=== PATIENT | male | born 1930 | race Caucasian/White ===

== ENCOUNTER 2017-04-05 16:10 | Inpatient (IN) | payer MEDICARE, OTHER ==
[2017-04-05] VITALS (143 sets, daily range): BP systolic 125; BP diastolic 85; PULSE 86; TEMP 97.3; O2SAT 37–100
[~2017-04-05] VITALS: Ht 172.7 cm; Wt 69.2 kg
[~2017-04-05 16:10] MED LIST: ARTIFICIAL SALIVA; ASPIRIN 81M81 MG/TA2 PO; BONINE25 MG PO; CIPRO 500MG TA500 MG PO; COLACE 100100 MG/CAP PO; GLUCOPHAGE850 MG/TAB PO; HYTRIN10 M1 PO; MIRALAX PA17 GM/Dose PO; NASALIDE0.025 MG/A NS; NASAREL0.025 MG/1 NAS; PRAVACHOL80 MG PO; PRILOSEC 20MG20 MG PO; PROAIR HFA0.09 MG/AC IH; PROSCAR 5MG5 MG PO; PSYLLIUM HUSK1 POW; REFRESH TEARS; RT ADVAIR HFA 412 GM IH; SENNA8.6 MG PO; TENORMIN 5050 MG/TAB PO; TOFRANIL 25MG T25 MG PO; UNABLE; VERELAN180 MG PO
[2017-04-05 17:10] LABS: MEAN CELL VOLUME 96 fl (80.0-100.0); MEAN CORPUSCULAR HGB CONC 32 g/dl (33.0-37.0); MEAN PLATELET VOLUME 11.7 fl (7.4-10.4); PLATELET COUNT 97 K/mm3 (130-400); RED BLOOD COUNT 2.62 M/mm3 (4.20-5.60); REDCELL DISTRIBUTION WIDTH-CV 16.2 % (11.5-14.5)
[2017-04-05 17:18] LABS: HEMATOCRIT 25.2 % (42.0-52.0); HEMOGLOBIN 8.1 g/dl (13.5-18.0); MEAN CORPUSCULAR HEMOGLOBIN 31 pg (27.0-31.0); WHITE BLOOD COUNT 65.1 K/mm3 (4.8-10.8)
[2017-04-05 17:19] LABS: ADD PATHOLOGY DIFF REVIEW NO
[2017-04-05 17:29] LABS: ADJUSTED CALCIUM 8.8 mg/dL (8.4-10.2); ALBUMIN 3.1 gm/dL (3.5-5.0); BILIRUBIN,TOTAL 1.1 mg/dL (0.0-1.0); CALCIUM 8.1 mg/dL (8.4-10.2); CREATININE, serum 0.97 mg/dL (0.66-1.25); MAGNESIUM 1.9 mg/dL (1.6-2.3); POTASSIUM 3.8 mmol/L (3.4-5.0)
[2017-04-05 17:32] LABS: INR 1.4 (0.8-3.0)
[2017-04-05] MEDS ORDERED: EVOXAC30 MG PO (17:36)
[2017-04-05] MEDS ORDERED: ASPIRIN E.C. 8181 MG PO (17:37)
[2017-04-05] MEDS ORDERED: FLOMAX 0.40.4 MG/CAP PO (17:40)
[2017-04-05] MEDS ORDERED: DITROPAN XL10 MG PO (17:41)
[2017-04-05] MEDS ORDERED: NAMENDA XR 21MG PO (17:42)
[2017-04-05 17:43] LABS: TROPONIN-I 0.169 ng/mL (0.000-0.034)
[2017-04-05 18:36] LABS: NEUTROPHILS 1 % (42.0-75.2); TOTAL CELLS COUNTED 100
[2017-04-05 18:48] LABS: PLATELET ESTIMATE DECREASED (NORMAL)
[2017-04-05 21:10] LABS: ARTERIAL BLD GAS O2 SATURATION 89.4 % (92-100); ARTERIAL BLD GAS TCO2 CT 23.3; ARTERIAL BLOOD GAS BASE EXCESS -0.9 (-2-2); ARTERIAL BLOOD GAS HCO3 22.3 meq/L (22-26); ARTERIAL BLOOD GAS PHT 7.47 C (7.35-7.45); ARTERIAL BLOOD GAS PO2 60.3 mmHg (80-100); ARTERIAL BLOOD GAS PO2T 60.3 (80-100); ARTERIAL BLOOD GAS pH 7.47 (7.35-7.45); OXYHEMOGLOBIN 89.1 %
[2017-04-05 21:11] LABS: ALLEN TEST YES; ALLENS TEST RESULT PASS; ATS? YES
[2017-04-05 23:30] LABS: SQUAMOUS EPITHELIAL 0-2 /hpf; URINE BACTERIA None Seen /hpf; URINE WBC 0-2 /hpf
[2017-04-05 23:46] LABS: PH 5 (5-8); URINE APPEARANCE Hazy; URINE BILIRUBIN Negative (NEGATIVE); URINE BLOOD 2+ (NEGATIVE); URINE COLOR Yellow; URINE GLUCOSE Negative (NEGATIVE); URINE KETONE Negative (NEGATIVE); URINE UROBILINOGEN Negative (NEGATIVE)
[2017-04-06] VITALS (1240 sets, daily range): BP systolic 117–155; BP diastolic 67–87; PULSE 76–95; TEMP 92–99.9; O2SAT 30–100
[2017-04-06 00:03] LABS: ARTERIAL BLD GAS O2 SATURATION 92.8 % (92-100); ARTERIAL BLD GAS TCO2 CT 23.1; ARTERIAL BLOOD GAS BASE EXCESS -0.9 (-2-2); ARTERIAL BLOOD GAS HCO3 22.2 meq/L (22-26); ARTERIAL BLOOD GAS PHT 7.48 C (7.35-7.45); ARTERIAL BLOOD GAS PO2 68.9 mmHg (80-100); ARTERIAL BLOOD GAS PO2T 68.9 (80-100); ARTERIAL BLOOD GAS pH 7.48 (7.35-7.45); OXYHEMOGLOBIN 92.2 %
[2017-04-06 00:04] LABS: ALLEN TEST YES; ALLENS TEST RESULT PASS; ATS? YES
[2017-04-06] MEDS ORDERED: NORVASC 10MG10 MG PO ×2 (04:14→04:18)
[2017-04-06 05:16] LABS: ARTERIAL BLD GAS O2 SATURATION 94.3 % (92-100); ARTERIAL BLD GAS TCO2 CT 24.7; ARTERIAL BLOOD GAS BASE EXCESS 0.8 (-2-2); ARTERIAL BLOOD GAS HCO3 23.8 meq/L (22-26); ARTERIAL BLOOD GAS PHT 7.49 C (7.35-7.45); ARTERIAL BLOOD GAS PO2 72.4 mmHg (80-100); ARTERIAL BLOOD GAS PO2T 72.4 (80-100); ARTERIAL BLOOD GAS pH 7.49 (7.35-7.45); OXYHEMOGLOBIN 93.5 %
[2017-04-06 05:49] LABS: ALLEN TEST YES; ATS? YES
[2017-04-06 05:50] LABS: ALLENS TEST RESULT PASS
[2017-04-06 06:15] LABS: MEAN CELL VOLUME 98 fl (80.0-100.0); MEAN CORPUSCULAR HGB CONC 31 g/dl (33.0-37.0); MEAN PLATELET VOLUME 11.8 fl (7.4-10.4); PLATELET COUNT 90 K/mm3 (130-400); RED BLOOD COUNT 2.75 M/mm3 (4.20-5.60); REDCELL DISTRIBUTION WIDTH-CV 16.5 % (11.5-14.5)
[2017-04-06 06:19] LABS: ADD PATHOLOGY DIFF REVIEW NO; HEMATOCRIT 26.8 % (42.0-52.0); HEMOGLOBIN 8.4 g/dl (13.5-18.0); MEAN CORPUSCULAR HEMOGLOBIN 31 pg (27.0-31.0); WHITE BLOOD COUNT 61.7 K/mm3 (4.8-10.8)
[2017-04-06 06:24] LABS: ADJUSTED CALCIUM 8.7 mg/dL (8.4-10.2); ALBUMIN 3.2 gm/dL (3.5-5.0); BILIRUBIN,TOTAL 1.2 mg/dL (0.0-1.0); CALCIUM 8.1 mg/dL (8.4-10.2); CREATININE, serum 0.96 mg/dL (0.66-1.25); TOTAL PROTEIN 6.2 gm/dL (6.4-8.2)
[2017-04-06 06:36] LABS: BAND 1 % (0-10); NEUTROPHILS 1 % (42.0-75.2); TOTAL CELLS COUNTED 100
[2017-04-06 06:37] LABS: POLYCHROMASIA 2+; SPHEROCYTE 2+
[2017-04-06 06:38] LABS: PLATELET ESTIMATE DECREASED (NORMAL)
[2017-04-07] VITALS (1185 sets, daily range): BP systolic 83–148; BP diastolic 47–94; PULSE 55–88; TEMP 96.9–99.1; O2SAT 40–100
[2017-04-07 08:02] LABS: PATHOLOGY DIFF REVIEW OK +
[2017-04-07 12:13] LABS: BASO # 0.1 (0.0-0.2); BASO % 0.2 % (0.0-2.0); EOS # 0.2 (0.0-0.7); EOS % 0.5 % (0-4.0); GRAN # 3.8 (1.4-6.5); GRAN % 7.9 % (42.2-75.2); LYMPH # 44.1 (1.2-3.4); LYMPH % 90.9 % (20.0-51.0); MEAN CELL VOLUME 97 fl (80.0-100.0); MEAN CORPUSCULAR HGB CONC 32 g/dl (33.0-37.0); MEAN PLATELET VOLUME 11.5 fl (7.4-10.4); MONO # 0.2 (0.1-0.6); MONO % 0.4 % (1.7-9.3); PLATELET COUNT 93 K/mm3 (130-400); RED BLOOD COUNT 2.61 M/mm3 (4.20-5.60); REDCELL DISTRIBUTION WIDTH-CV 16.3 % (11.5-14.5)
[2017-04-07 12:17] LABS: HEMATOCRIT 25.4 % (42.0-52.0); MEAN CORPUSCULAR HEMOGLOBIN 31 pg (27.0-31.0); WHITE BLOOD COUNT 48.5 K/mm3 (4.8-10.8)
[2017-04-07 12:36] LABS: ADJUSTED CALCIUM 9.1 mg/dL (8.4-10.2); ALBUMIN 2.9 gm/dL (3.5-5.0); BILIRUBIN,TOTAL 0.8 mg/dL (0.0-1.0); CALCIUM 8.2 mg/dL (8.4-10.2); CREATININE, serum 1.12 mg/dL (0.66-1.25); POTASSIUM 3.1 mmol/L (3.4-5.0); TOTAL PROTEIN 5.9 gm/dL (6.4-8.2)
[2017-04-07 15:24] LABS: ARTERIAL BLD GAS O2 SATURATION 94.7 % (92-100); ARTERIAL BLD GAS TCO2 CT 22.8; ARTERIAL BLOOD GAS BASE EXCESS -1.4 (-2-2); ARTERIAL BLOOD GAS HCO3 21.9 meq/L (22-26); ARTERIAL BLOOD GAS PO2 76.9 mmHg (80-100); ARTERIAL BLOOD GAS pH 7.48 (7.35-7.45); OXYHEMOGLOBIN 93.7 %
[2017-04-07 15:25] LABS: ALLEN TEST YES; ALLENS TEST RESULT PASS; ATS? YES
[2017-04-07 15:26] LABS: VENOUS BLOOD GAS BE 0.2 (-4-4); VENOUS BLOOD GAS SAO2 36.2 % (60-80); VENOUS BLOOD GAS SITE CENTRAL LINE
[2017-04-07 21:17] LABS: VENOUS BLOOD GAS BE -6.6 (-4-4)
[2017-04-07 21:18] LABS: VENOUS BLOOD GAS SITE CENTRAL LINE
[2017-04-07 21:22] LABS: BASO # 0.1 (0.0-0.2); BASO % 0.1 % (0.0-2.0); EOS # 0.2 (0.0-0.7); EOS % 0.3 % (0-4.0); GRAN # 4.3 (1.4-6.5); GRAN % 5.8 % (42.2-75.2); LYMPH # 67.9 (1.2-3.4); LYMPH % 93.1 % (20.0-51.0); MEAN CELL VOLUME 97 fl (80.0-100.0); MEAN CORPUSCULAR HGB CONC 31 g/dl (33.0-37.0); MEAN PLATELET VOLUME 12.4 fl (7.4-10.4); MONO # 0.4 (0.1-0.6); MONO % 0.6 % (1.7-9.3); PLATELET COUNT 101 K/mm3 (130-400); RED BLOOD COUNT 2.91 M/mm3 (4.20-5.60); REDCELL DISTRIBUTION WIDTH-CV 16.6 % (11.5-14.5)
[2017-04-07 21:59] LABS: HEMATOCRIT 28.3 % (42.0-52.0); HEMOGLOBIN 8.9 g/dl (13.5-18.0); MEAN CORPUSCULAR HEMOGLOBIN 31 pg (27.0-31.0)
[2017-04-08] VITALS (263 sets, daily range): BP systolic 118–148; BP diastolic 63–113; PULSE 55–92; TEMP 37; O2SAT 62–100
[2017-04-08] LABS: IMMUNOGLOBULIN A 46 mg/dL (101-645); IMMUNOGLOBULIN G 512 mg/dL (540-1822); IMMUNOGLOBULIN M, QUANTITATIVE 13 mg/dL (22-240)
[2017-04-08 05:04] LABS: ARTERIAL BLD GAS O2 SATURATION 91.1 % (92-100); ARTERIAL BLD GAS TCO2 CT 19.9; ARTERIAL BLOOD GAS HCO3 18.9 meq/L (22-26); ARTERIAL BLOOD GAS PHT 7.41 C (7.35-7.45); ARTERIAL BLOOD GAS PO2 66.6 mmHg (80-100); ARTERIAL BLOOD GAS PO2T 66.6 (80-100); ARTERIAL BLOOD GAS pH 7.41 (7.35-7.45); OXYHEMOGLOBIN 90.4 %
[2017-04-08 05:05] LABS: ALLEN TEST YES; ALLENS TEST RESULT PASS; ATS? YES
[2017-04-08 05:34] LABS: BASO # 0.2 (0.0-0.2); BASO % 0.3 % (0.0-2.0); GRAN # 4.6 (1.4-6.5); GRAN % 7.3 % (42.2-75.2); LYMPH # 58.6 (1.2-3.4); LYMPH % 91.8 % (20.0-51.0); MEAN CELL VOLUME 97 fl (80.0-100.0); MEAN CORPUSCULAR HGB CONC 31 g/dl (33.0-37.0); MEAN PLATELET VOLUME 12.7 fl (7.4-10.4); MONO # 0.4 (0.1-0.6); MONO % 0.5 % (1.7-9.3); PLATELET COUNT 88 K/mm3 (130-400); RED BLOOD COUNT 2.92 M/mm3 (4.20-5.60); REDCELL DISTRIBUTION WIDTH-CV 17.2 % (11.5-14.5)
[2017-04-08 05:35] LABS: HEMATOCRIT 28.3 % (42.0-52.0); HEMOGLOBIN 8.9 g/dl (13.5-18.0); MEAN CORPUSCULAR HEMOGLOBIN 30 pg (27.0-31.0)
[2017-04-08 05:36] LABS: WHITE BLOOD COUNT 63.8 K/mm3 (4.8-10.8)
[2017-04-08 05:49] LABS: PROTHROMBIN TIME 22.8 SECONDS (9.7-12.8)
[2017-04-08 06:25] LABS: ADJUSTED CALCIUM 8.8 mg/dL (8.4-10.2); ALBUMIN 3.1 gm/dL (3.5-5.0); BILIRUBIN,TOTAL 1.1 mg/dL (0.0-1.0); CALCIUM 8.1 mg/dL (8.4-10.2); CREATININE, serum 1.32 mg/dL (0.66-1.25); TOTAL PROTEIN 5.9 gm/dL (6.4-8.2)
[2017-04-08 14:24] LABS: ARTERIAL BLD GAS O2 SATURATION 89.9 % (92-100); ARTERIAL BLD GAS TCO2 CT 20.6; ARTERIAL BLOOD GAS BASE EXCESS -4.2 (-2-2); ARTERIAL BLOOD GAS HCO3 19.6 meq/L (22-26); ARTERIAL BLOOD GAS PO2 62.5 mmHg (80-100); ARTERIAL BLOOD GAS pH 7.42 (7.35-7.45); OXYHEMOGLOBIN 89.2 %
[2017-04-08 14:25] LABS: ALLEN TEST YES; ATS? YES
[2017-04-08 14:26] LABS: ALLENS TEST RESULT PASS
[2017-04-09] VITALS (570 sets, daily range): BP systolic 122–179; BP diastolic 59–118; PULSE 57–88; TEMP 97–98.5; O2SAT 54–100
[2017-04-09 05:08] LABS: GRAN # 4.9 (1.4-6.5); GRAN % 7.5 % (42.2-75.2); LYMPH # 59.7 (1.2-3.4); LYMPH % 91.8 % (20.0-51.0); MEAN CELL VOLUME 96 fl (80.0-100.0); MEAN CORPUSCULAR HGB CONC 32 g/dl (33.0-37.0); MEAN PLATELET VOLUME 12.4 fl (7.4-10.4); MONO # 0.2 (0.1-0.6); MONO % 0.4 % (1.7-9.3); PLATELET COUNT 101 K/mm3 (130-400); RED BLOOD COUNT 3.17 M/mm3 (4.20-5.60); REDCELL DISTRIBUTION WIDTH-CV 16.9 % (11.5-14.5)
[2017-04-09 05:09] LABS: HEMATOCRIT 30.3 % (42.0-52.0); HEMOGLOBIN 9.7 g/dl (13.5-18.0); MEAN CORPUSCULAR HEMOGLOBIN 31 pg (27.0-31.0)
[2017-04-09 05:10] LABS: WHITE BLOOD COUNT 65.1 K/mm3 (4.8-10.8)
[2017-04-09 05:16] LABS: ADJUSTED CALCIUM 9.1 mg/dL (8.4-10.2); ALBUMIN 3.2 gm/dL (3.5-5.0); BILIRUBIN,TOTAL 0.9 mg/dL (0.0-1.0); CALCIUM 8.5 mg/dL (8.4-10.2); CREATININE, serum 1.16 mg/dL (0.66-1.25); POTASSIUM 3.5 mmol/L (3.4-5.0); TOTAL PROTEIN 6.1 gm/dL (6.4-8.2)
[2017-04-09 05:17] LABS: PROTHROMBIN TIME 22.8 SECONDS (9.7-12.8)
[2017-04-10] VITALS (13 sets, daily range): BP systolic 115–175; BP diastolic 56–90; PULSE 51–70; TEMP 97.4–98.9
[2017-04-10 07:22] LABS: MEAN CELL VOLUME 99 fl (80.0-100.0); MEAN CORPUSCULAR HGB CONC 31 g/dl (33.0-37.0); MEAN PLATELET VOLUME 12.1 fl (7.4-10.4); PLATELET COUNT 104 K/mm3 (130-400); RED BLOOD COUNT 3.09 M/mm3 (4.20-5.60)
[2017-04-10 07:23] LABS: INR 1.9 (0.8-3.0); PROTHROMBIN TIME 21.9 SECONDS (9.7-12.8)
[2017-04-10 07:27] LABS: ADD PATHOLOGY DIFF REVIEW NO; HEMATOCRIT 30.6 % (42.0-52.0); HEMOGLOBIN 9.5 g/dl (13.5-18.0); MEAN CORPUSCULAR HEMOGLOBIN 31 pg (27.0-31.0); WHITE BLOOD COUNT 54.8 K/mm3 (4.8-10.8)
[2017-04-10 08:04] LABS: ADJUSTED CALCIUM 9.2 mg/dL (8.4-10.2); ALBUMIN 3.2 gm/dL (3.5-5.0); BILIRUBIN,TOTAL 0.7 mg/dL (0.0-1.0); CALCIUM 8.6 mg/dL (8.4-10.2); CREATININE, serum 1.18 mg/dL (0.66-1.25); POTASSIUM 3.5 mmol/L (3.4-5.0); TOTAL PROTEIN 6.1 gm/dL (6.4-8.2)
[2017-04-10 09:03] LABS: NEUTROPHILS 4 % (42.0-75.2); POLYCHROMASIA 1+
[2017-04-10 09:04] LABS: PLATELET ESTIMATE DECREASED (NORMAL)
[2017-04-10 09:05] LABS: BAND 5 % (0-10); TOTAL CELLS COUNTED 100
[2017-04-11 00:07] VITALS: BP 155/75; PULSE 62; TEMP 97.6
[2017-04-11 04:30] VITALS: BP 158/76; PULSE 69; TEMP 97.6
[2017-04-11 08:08] LABS: MEAN CELL VOLUME 99 fl (80.0-100.0); MEAN CORPUSCULAR HGB CONC 31 g/dl (33.0-37.0); MEAN PLATELET VOLUME 12.9 fl (7.4-10.4); PLATELET COUNT 84 K/mm3 (130-400); REDCELL DISTRIBUTION WIDTH-CV 16.8 % (11.5-14.5)
[2017-04-11 08:11] VITALS: BP 145/84; PULSE 99
[2017-04-11 08:11] LABS: ADD PATHOLOGY DIFF REVIEW NO; HEMATOCRIT 28.8 % (42.0-52.0); HEMOGLOBIN 8.9 g/dl (13.5-18.0); MEAN CORPUSCULAR HEMOGLOBIN 31 pg (27.0-31.0); WHITE BLOOD COUNT 49.9 K/mm3 (4.8-10.8)
[2017-04-11 08:14] LABS: CALCIUM 8.6 mg/dL (8.4-10.2); CREATININE, serum 1.18 mg/dL (0.66-1.25); POTASSIUM 3.8 mmol/L (3.4-5.0)
[2017-04-11 08:39] LABS: BAND 3 % (0-10); HYPOCHROMIA 3+; NEUTROPHILS 1 % (42.0-75.2); TOTAL CELLS COUNTED 100
[2017-04-11 08:40] LABS: ANISOCYTOSIS 1+; PLATELET ESTIMATE DECREASED (NORMAL); SPHEROCYTE 1+
[2017-04-11 12:27] VITALS: BP 1134/57; BP 134/57; PULSE 79; TEMP 97.9
[2017-04-11 16:03] VITALS: BP 139/55; PULSE 75; TEMP 98.5
[2017-04-11 20:30] VITALS: BP 142/66; PULSE 67; TEMP 97.6
[2017-04-12 01:34] VITALS: BP 157/82; PULSE 60; TEMP 97.6
[2017-04-12 04:33] VITALS: BP 154/70; PULSE 58; TEMP 98.1
[2017-04-12 07:53] VITALS: BP 165/90; PULSE 59; TEMP 98.6
[2017-04-12 08:18] LABS: INR 1.7 (0.8-3.0); MEAN CELL VOLUME 99 fl (80.0-100.0); MEAN CORPUSCULAR HGB CONC 31 g/dl (33.0-37.0); PLATELET COUNT 80 K/mm3 (130-400); PROTHROMBIN TIME 19.1 SECONDS (9.7-12.8); REDCELL DISTRIBUTION WIDTH-CV 17.3 % (11.5-14.5)
[2017-04-12 08:22] LABS: ADD PATHOLOGY DIFF REVIEW NO; HEMATOCRIT 29.8 % (42.0-52.0); HEMOGLOBIN 9.2 g/dl (13.5-18.0); MEAN CORPUSCULAR HEMOGLOBIN 31 pg (27.0-31.0); WHITE BLOOD COUNT 42.2 K/mm3 (4.8-10.8)
[2017-04-12 08:27] LABS: CALCIUM 8.5 mg/dL (8.4-10.2); CREATININE, serum 1.24 mg/dL (0.66-1.25); POTASSIUM 3.6 mmol/L (3.4-5.0)
[2017-04-12 08:40] LABS: NEUTROPHILS 8 % (42.0-75.2); TOTAL CELLS COUNTED 101
[2017-04-12 08:41] LABS: ANISOCYTOSIS 1+; POLYCHROMASIA 1+; TOXIC GRANULATION PRESENT
[2017-04-12 08:42] LABS: HYPOCHROMIA 1+; ROULEAUX 1+
[2017-04-12 08:43] LABS: PROLACTIN 24.2 ng/mL (3.7-17.9)
[2017-04-12 08:44] LABS: MICROCYTOSIS 1+
[2017-04-12 11:45] LABS: PLEURAL FLUID APPEARANCE CLEAR; PLEURAL FLUID COLOR COLORLESS
[2017-04-12 11:50] LABS: GLUCOSE,PLEURAL FLUID 159 mg/dL
[2017-04-12 12:34] VITALS: BP 126/66; PULSE 72; TEMP 98.6
[2017-04-12 13:16] LABS: PLEURAL FLUID RIGHT SIDE
[2017-04-12 17:03] VITALS: BP 137/57; PULSE 48; TEMP 98.5
[2017-04-12 20:19] VITALS: BP 133/53; PULSE 107; TEMP 98.6
[2017-04-13 05:09] VITALS: BP 150/63; PULSE 51; TEMP 98.3
[2017-04-13 08:44] VITALS: BP 154/63; PULSE 55; TEMP 97.8
[2017-04-13 09:20] LABS: MEAN CELL VOLUME 99 fl (80.0-100.0); MEAN CORPUSCULAR HGB CONC 31 g/dl (33.0-37.0); MEAN PLATELET VOLUME 12.7 fl (7.4-10.4); PLATELET COUNT 75 K/mm3 (130-400); RED BLOOD COUNT 2.84 M/mm3 (4.20-5.60); REDCELL DISTRIBUTION WIDTH-CV 17.6 % (11.5-14.5)
[2017-04-13 09:25] LABS: HEMATOCRIT 28.1 % (42.0-52.0); HEMOGLOBIN 8.8 g/dl (13.5-18.0); MEAN CORPUSCULAR HEMOGLOBIN 31 pg (27.0-31.0); WHITE BLOOD COUNT 32.5 K/mm3 (4.8-10.8)
[2017-04-13 09:26] LABS: ADD PATHOLOGY DIFF REVIEW NO
[2017-04-13 09:35] LABS: CALCIUM 8.2 mg/dL (8.4-10.2); CREATININE, serum 1.25 mg/dL (0.66-1.25); PHOSPHOROUS 5.1 mg/dL (2.5-4.5); POTASSIUM 3.5 mmol/L (3.4-5.0)
[2017-04-13 10:32] LABS: ANISOCYTOSIS 1+; BAND 5 % (0-10); NEUTROPHILS 13 % (42.0-75.2); PLATELET ESTIMATE DECREASED (NORMAL); TOTAL CELLS COUNTED 100
[2017-04-13 10:33] LABS: HYPOCHROMIA 1+
[2017-04-13 12:17] VITALS: BP 119/50; PULSE 51; TEMP 98.4
[2017-04-13 13:30] LABS: GLUCOSE,PLEURAL FLUID 173 mg/dL
[2017-04-13 14:33] LABS: PLEURAL FLUID - PMN 0.7 % (0-25)
[2017-04-13 16:36] VITALS: BP 140/59; PULSE 128; TEMP 97.8
[2017-04-13 18:27] LABS: PLEURAL FLUID APPEARANCE CLEAR; PLEURAL FLUID COLOR YELLOW
[2017-04-13 18:30] LABS: PLEURAL FLUID LEFT SIDE
[2017-04-13 19:44] VITALS: BP 140/55; PULSE 58; TEMP 98.1
[2017-04-14 00:22] VITALS: BP 147/64; PULSE 60; TEMP 97.7
[2017-04-14 04:15] VITALS: BP 148/64; PULSE 56; TEMP 97.7
[2017-04-14 06:59] LABS: MEAN CELL VOLUME 100 fl (80.0-100.0); MEAN CORPUSCULAR HGB CONC 31 g/dl (33.0-37.0); MEAN PLATELET VOLUME 12.2 fl (7.4-10.4); PLATELET COUNT 76 K/mm3 (130-400); RED BLOOD COUNT 2.92 M/mm3 (4.20-5.60); REDCELL DISTRIBUTION WIDTH-CV 17.6 % (11.5-14.5)
[2017-04-14 07:08] LABS: HEMATOCRIT 29.2 % (42.0-52.0); HEMOGLOBIN 9.1 g/dl (13.5-18.0); MEAN CORPUSCULAR HEMOGLOBIN 31 pg (27.0-31.0); WHITE BLOOD COUNT 30.7 K/mm3 (4.8-10.8)
[2017-04-14 07:09] LABS: ADD PATHOLOGY DIFF REVIEW NO
[2017-04-14 07:10] LABS: CALCIUM 8.4 mg/dL (8.4-10.2); CREATININE, serum 1.19 mg/dL (0.66-1.25); POTASSIUM 3.4 mmol/L (3.4-5.0)
[2017-04-14 07:36] VITALS: BP 158/77; PULSE 58; TEMP 97.5
[2017-04-14] MEDS ORDERED: IPRATROPIUM BROM3 M1 IH ×2 (08:31)
[2017-04-14] MEDS ORDERED: HEPARIN LOCK FLU5 M1 IV ×2 (08:32)
[2017-04-14] MEDS ORDERED: SEROQUEL 2525 MG/TAB PO ×2 (08:33→08:34)
[2017-04-14] MEDS ORDERED: TYLENOL 325MG325 MG PO (08:33)
[2017-04-14] MEDS ORDERED: PREDNISONE20 MG PO (08:35)
[2017-04-14] MEDS ORDERED: NOVLOG SQ (08:35)
[2017-04-14] MEDS ORDERED: NS INT FLUSH 1010 ML IV ×2 (08:36)
[2017-04-14] MEDS ORDERED: VANCOCIN HCL1 GM IV (09:25)
[2017-04-14] MEDS ORDERED: DIFLUCAN 100MG100 MG PO (09:26)
[2017-04-14] MEDS ORDERED: LASIX 20MG TABL20 MG PO (09:27)
[2017-04-14] MEDS ORDERED: ANTACID500 M1 PO (09:27)
[2017-04-14] MEDS ORDERED: K-TAB20 PO (09:28)
[2017-04-14] MEDS ORDERED: TENORMIN 2525 MG/TAB PO (09:29)
[2017-04-14 10:14] LABS: ANISOCYTOSIS 2+; BAND 4 % (0-10); EOSINOPHIL 1 % (0-4); HYPOCHROMIA 1+; NEUTROPHILS 6 % (42.0-75.2); PLATELET ESTIMATE DECREASED (NORMAL); TOTAL CELLS COUNTED 100
[2017-04-14 12:22] VITALS: BP 129/52; PULSE 80; TEMP 98.6
[2017-04-14 16:02] VITALS: BP 130/57; PULSE 52; TEMP 98.8
[2017-04-14 17:03] VITALS: BP 130/57; PULSE 52; TEMP 98.8
== END 2017-04-14 17:19 | DRG 853 ==
LOC: COL.ER 16:10 → ICU 18:45 → MEDICAL 04-09 11:39
PROVIDERS: Emergency Medicine; Family Medicine; Internal Medicine; Internal Medicine Cardiovascular Disease; Internal Medicine Medical Oncology; Internal Medicine Pulmonary Disease; Nurse Practitioner Family; Physician Assistant
PROC: 0JH602Z Insertion of Monitoring Device into Chest Subcutaneous Tissue and Fascia, Open Approach (ICD-10-PCS; principal; 2017-04-08)
PROC: 0W993ZX Drainage of Right Pleural Cavity, Percutaneous Approach, Diagnostic (ICD-10-PCS; 2017-04-12)
PROC: 0W9B3ZX Drainage of Left Pleural Cavity, Percutaneous Approach, Diagnostic (ICD-10-PCS; 2017-04-13)
DX: A41.02 Sepsis due to Methicillin resistant Staphylococcus aureus (principal); J15.212 Pneumonia due to Methicillin resistant Staphylococcus aureus; J96.01 Acute respiratory failure with hypoxia; I50.33 Acute on chronic diastolic (congestive) heart failure; I21.4 Non-ST elevation (NSTEMI) myocardial infarction; C91.10 Chronic lymphocytic leukemia of B-cell type not having achieved remission; E87.1 Hypo-osmolality and hyponatremia; F23 Brief psychotic disorder; R65.20 Severe sepsis without septic shock; I25.10 Atherosclerotic heart disease of native coronary artery without angina pectoris; I11.0 Hypertensive heart disease with heart failure; E11.9 Type 2 diabetes mellitus without complications; Z87.891 Personal history of nicotine dependence; F03.90 Unspecified dementia, unspecified severity, without behavioral disturbance, psychotic disturbance, mood disturbance, and anxiety; Z95.5 Presence of coronary angioplasty implant and graft; N40.1 Benign prostatic hyperplasia with lower urinary tract symptoms; R33.8 Other retention of urine; I48.2 Chronic atrial fibrillation
CPT/HCPCS: 99223-AI; 99232-AI; 99233-AI; 99239; A4315; C1751; C1764; J1200; J1459; J1610; J1630; J1644; J1650; J1720; J1815; J1940; J1956; J2060; J2543; J2920; J2930; J3370; J7030; J7050; J7512; P9040; Q9967

== ENCOUNTER 2017-04-14 17:30 | Inpatient (IN) | payer MEDICARE, OTHER ==
[~2017-04-14] VITALS: Ht 172.7 cm; Wt 56.6 kg
[~2017-04-14 17:30] MED LIST changes: +ANTACID500 M1 PO; +ASPIRIN E.C. 8181 MG PO; +DIFLUCAN 100MG100 MG PO; +DITROPAN XL10 MG PO; +EVOXAC30 MG PO; +FLOMAX 0.40.4 MG/CAP PO; +HEPARIN LOCK FLU5 M1 IV; +IPRATROPIUM BROM3 M1 IH; +K-TAB20 PO; +LASIX 20MG TABL20 MG PO; +NAMENDA XR 21MG PO; +NORVASC 10MG10 MG PO; +NOVLOG SQ; +NS INT FLUSH 1010 ML IV; +PREDNISONE20 MG PO; +SEROQUEL 2525 MG/TAB PO; +TENORMIN 2525 MG/TAB PO; +TYLENOL 325MG325 MG PO; +VANCOCIN HCL1 GM IV
[2017-04-14 18:17] VITALS: BP 124/53; PULSE 52; TEMP 98.4
[2017-04-15 05:00] VITALS: BP 144/58; PULSE 61; TEMP 98.9
[2017-04-15 06:37] VITALS: BP 110/60; PULSE 69; TEMP 98.5
[2017-04-15 16:48] VITALS: BP 98/39; PULSE 52; TEMP 98.1
[2017-04-16 05:28] LABS: BASO % 0.1 % (0.0-2.0); EOS # 0.1 (0.0-0.7); EOS % 0.5 % (0-4.0); GRAN # 3.2 (1.4-6.5); GRAN % 11.5 % (42.2-75.2); LYMPH % 87.4 % (20.0-51.0); MEAN CELL VOLUME 100 fl (80.0-100.0); MEAN CORPUSCULAR HGB CONC 31 g/dl (33.0-37.0); MEAN PLATELET VOLUME 12.9 fl (7.4-10.4); MONO # 0.1 (0.1-0.6); MONO % 0.4 % (1.7-9.3); PLATELET COUNT 72 K/mm3 (130-400); REDCELL DISTRIBUTION WIDTH-CV 17.3 % (11.5-14.5)
[2017-04-16 05:37] LABS: HEMATOCRIT 28.9 % (42.0-52.0); MEAN CORPUSCULAR HEMOGLOBIN 31 pg (27.0-31.0); WHITE BLOOD COUNT 27.4 K/mm3 (4.8-10.8)
[2017-04-16 05:42] LABS: CALCIUM 8.2 mg/dL (8.4-10.2); CREATININE, serum 0.99 mg/dL (0.66-1.25); POTASSIUM 3.1 mmol/L (3.4-5.0)
[2017-04-16 06:30] VITALS: BP 137/59; PULSE 55; TEMP 98.4
[2017-04-16 17:45] VITALS: BP 113/47; PULSE 63; TEMP 98
[2017-04-17 04:54] VITALS: BP 130/53; PULSE 67; TEMP 98.3
[2017-04-17 16:59] VITALS: BP 91/50; PULSE 70; TEMP 97.3
[2017-04-17 20:00] VITALS: BP 127/58; PULSE 54
[2017-04-18 03:14] VITALS: BP 121/52; PULSE 61; TEMP 98.5
[2017-04-18 04:42] LABS: MEAN CELL VOLUME 98 fl (80.0-100.0); MEAN CORPUSCULAR HGB CONC 32 g/dl (33.0-37.0); MEAN PLATELET VOLUME 12.2 fl (7.4-10.4); PLATELET COUNT 73 K/mm3 (130-400); RED BLOOD COUNT 2.94 M/mm3 (4.20-5.60); REDCELL DISTRIBUTION WIDTH-CV 17.1 % (11.5-14.5)
[2017-04-18 04:45] LABS: HEMATOCRIT 28.8 % (42.0-52.0); HEMOGLOBIN 9.1 g/dl (13.5-18.0); MEAN CORPUSCULAR HEMOGLOBIN 31 pg (27.0-31.0)
[2017-04-18 04:47] LABS: ADD PATHOLOGY DIFF REVIEW NO; WHITE BLOOD COUNT 27.7 K/mm3 (4.8-10.8)
[2017-04-18 04:54] LABS: ANISOCYTOSIS 3+; BAND 3 % (0-10); CALCIUM 9.3 mg/dL (8.4-10.2); CREATININE, serum 1.08 mg/dL (0.66-1.25); HYPOCHROMIA 1+; MAGNESIUM 1.7 mg/dL (1.6-2.3); NEUTROPHILS 14 % (42.0-75.2); PLATELET ESTIMATE DECREASED (NORMAL); POTASSIUM 5.5 mmol/L (3.4-5.0); TOTAL CELLS COUNTED 100
[2017-04-18 19:28] VITALS: BP 111/41; PULSE 52; TEMP 97.4
[2017-04-19 05:40] VITALS: BP 147/67; PULSE 64; TEMP 98.2
[2017-04-19 05:43] LABS: CALCIUM 9.1 mg/dL (8.4-10.2); CREATININE, serum 1.16 mg/dL (0.66-1.25); POTASSIUM 5.1 mmol/L (3.4-5.0)
[2017-04-19 16:28] VITALS: BP 103/47; PULSE 79; TEMP 97.9
[2017-04-20 05:45] LABS: PH 8 (5-8); SQUAMOUS EPITHELIAL 0-2 /hpf; URINE APPEARANCE Clear; URINE BACTERIA Rare /hpf; URINE BILIRUBIN Negative (NEGATIVE); URINE BLOOD 3+ (NEGATIVE); URINE COLOR Straw; URINE GLUCOSE Negative (NEGATIVE); URINE KETONE Negative (NEGATIVE); URINE UROBILINOGEN Negative (NEGATIVE); URINE WBC 0-2 /hpf
[2017-04-20 06:16] VITALS: BP 129/63; PULSE 61; TEMP 97.6
[2017-04-20 18:02] VITALS: BP 111/52; PULSE 57; TEMP 98.1
[2017-04-21 04:43] VITALS: BP 105/48; PULSE 58; TEMP 97.7
[2017-04-21 04:58] VITALS: BP 105/48; PULSE 58; TEMP 97.7
[2017-04-21 19:24] VITALS: BP 124/55; PULSE 65; TEMP 97.2
[2017-04-22 04:53] VITALS: BP 128/53; PULSE 66; TEMP 97.4
[2017-04-22 12:34] LABS: PH 8 (5-8); SQUAMOUS EPITHELIAL None Seen /hpf; URINE APPEARANCE Clear; URINE BACTERIA None Seen /hpf; URINE BILIRUBIN Negative (NEGATIVE); URINE BLOOD 2+ (NEGATIVE); URINE COLOR Yellow; URINE GLUCOSE Negative (NEGATIVE); URINE KETONE Negative (NEGATIVE); URINE UROBILINOGEN Negative (NEGATIVE); URINE WBC 0-2 /hpf
[2017-04-22 17:07] VITALS: BP 119/53; PULSE 54; TEMP 98.4
[2017-04-23 05:28] VITALS: BP 116/62; PULSE 64; TEMP 97.7
[2017-04-23 17:40] VITALS: BP 92/45; PULSE 52; TEMP 97.8
[2017-04-24 01:08] VITALS: BP 112/56; PULSE 65; TEMP 98.1
[2017-04-24 05:43] VITALS: BP 109/51; PULSE 60; TEMP 97.2
[2017-04-24 17:00] VITALS: BP 112/43; PULSE 48; TEMP 98
[2017-04-25 04:39] VITALS: BP 119/64; PULSE 74; TEMP 98
[2017-04-25 06:46] LABS: MEAN CELL VOLUME 98 fl (80.0-100.0); MEAN CORPUSCULAR HGB CONC 32 g/dl (33.0-37.0); PLATELET COUNT 81 K/mm3 (130-400); RED BLOOD COUNT 2.97 M/mm3 (4.20-5.60)
[2017-04-25 06:52] LABS: HEMATOCRIT 29.2 % (42.0-52.0); HEMOGLOBIN 9.3 g/dl (13.5-18.0); MEAN CORPUSCULAR HEMOGLOBIN 31 pg (27.0-31.0); WHITE BLOOD COUNT 29.2 K/mm3 (4.8-10.8)
[2017-04-25 07:01] LABS: CALCIUM 8.6 mg/dL (8.4-10.2); CREATININE, serum 1.22 mg/dL (0.66-1.25); MAGNESIUM 1.9 mg/dL (1.6-2.3); POTASSIUM 3.9 mmol/L (3.4-5.0)
[2017-04-25 08:22] LABS: BAND 4 % (0-10); EOSINOPHIL 4 % (0-4); TOTAL CELLS COUNTED 100
[2017-04-25 08:24] LABS: PLATELET ESTIMATE DECREASED (NORMAL)
[2017-04-25 08:25] LABS: STOMATOCYTE 2+
[2017-04-25 08:26] LABS: HYPOCHROMIA 3+
[2017-04-25 08:27] LABS: ADD PATHOLOGY DIFF REVIEW YES
[2017-04-25 10:38] VITALS: BP 119/64; PULSE 74; TEMP 98
[2017-04-28 08:42] LABS: PATHOLOGY DIFF REVIEW OK +
== END 2017-04-25 11:10 | DRG 91 ==
PROVIDERS: Internal Medicine; Nurse Practitioner Family
DX: G72.81 Critical illness myopathy (principal); A41.9 Sepsis, unspecified organism; J96.01 Acute respiratory failure with hypoxia; J18.9 Pneumonia, unspecified organism; E43 Unspecified severe protein-calorie malnutrition; I50.32 Chronic diastolic (congestive) heart failure; C91.10 Chronic lymphocytic leukemia of B-cell type not having achieved remission; Z68.1 Body mass index [BMI] 19.9 or less, adult; I48.0 Paroxysmal atrial fibrillation; I11.0 Hypertensive heart disease with heart failure; I25.10 Atherosclerotic heart disease of native coronary artery without angina pectoris; Z95.5 Presence of coronary angioplasty implant and graft; E11.9 Type 2 diabetes mellitus without complications; E87.5 Hyperkalemia; R33.9 Retention of urine, unspecified
CPT/HCPCS: 99223-AI; 99232-AI; 99233-AI; 99239; A9284; J1815; J3370; J7050; J7512

== ENCOUNTER 2017-07-31 14:32 | Emergency (ER) | payer MEDICARE, OTHER ==
[2006-06-12 18:14] VITALS: BP 112/58
[~2017-07-31] VITALS: Ht 165.1 cm; Wt 61.4 kg
[~2017-07-31 14:32] MED LIST changes: +JANUVIA25 MG PO; +RT ADVAIR 228 DISKUS IH
[2017-07-31 14:34] VITALS: TEMP 97.9
[2017-07-31 15:20] LABS: HEMATOCRIT 40.1 % (42.0-52.0); HEMOGLOBIN 13.2 g/dl (13.5-18.0); MEAN CELL VOLUME 93 fl (80.0-100.0); MEAN CORPUSCULAR HEMOGLOBIN 31 pg (27.0-31.0); MEAN CORPUSCULAR HGB CONC 33 g/dl (33.0-37.0); MEAN PLATELET VOLUME 11.5 fl (7.4-10.4); PLATELET COUNT 189 K/mm3 (130-400); RED BLOOD COUNT 4.33 M/mm3 (4.20-5.60)
[2017-07-31 15:22] LABS: WHITE BLOOD COUNT 43.9 K/mm3 (4.8-10.8)
[2017-07-31 15:32] LABS: ADJUSTED CALCIUM 9.2 mg/dL (8.4-10.2); ALBUMIN 4.8 gm/dL (3.5-5.0); BILIRUBIN,TOTAL 0.7 mg/dL (0.0-1.0); C-REACTIVE PROTEIN 0.7 mg/dL (0.0-0.9); CALCIUM 9.8 mg/dL (8.4-10.2); CREATININE, serum 1.33 mg/dL (0.66-1.25); POTASSIUM 4.4 mmol/L (3.4-5.0); TOTAL PROTEIN 7.7 gm/dL (6.4-8.2)
[2017-07-31 15:33] LABS: COLLECTION METHOD CLEAN CATCH
[2017-07-31 15:42] LABS: BAND 3 % (0-10); EOSINOPHIL 1 % (0-4); METAMYELOCYTE 1 % (0-0); NEUTROPHILS 10 % (42.0-75.2); TOTAL CELLS COUNTED 102
[2017-07-31 15:43] LABS: PLATELET ESTIMATE NORMAL (NORMAL)
[2017-07-31 15:44] LABS: ADD PATHOLOGY DIFF REVIEW YES; LYMPHOCYTE 86 % (20.0-51.0)
[2017-07-31 15:52] LABS: MUCOUS Present /lpf; PH 5 (5-8); SQUAMOUS EPITHELIAL 0-2 /hpf; URINE APPEARANCE Hazy; URINE BACTERIA None Seen /hpf; URINE BILIRUBIN Negative (NEGATIVE); URINE BLOOD 2+ (NEGATIVE); URINE COLOR Yellow; URINE GLUCOSE Negative (NEGATIVE); URINE KETONE Negative (NEGATIVE); URINE LEUKOCYTE ESTERASE Negative (NEGATIVE); URINE PROTEIN(semi-quant) 2+ (NEGATIVE); URINE UROBILINOGEN Negative (NEGATIVE); URINE WBC 0-2 /hpf
[2017-07-31] MEDS ORDERED: RISPERDAL 0.5M0.5 MG PO (15:58)
[2017-07-31] MEDS ORDERED: RISPERDAL 0.20.25 MG PO (16:05)
[2017-07-31 16:24] VITALS: BP 116/95; PULSE 84
== END 2017-07-31 16:29 | disposition home or self-care (01) ==
LOC: COL.ER 14:32
PROVIDERS: Family Medicine
DX: G89.29 Other chronic pain (principal); M25.552 Pain in left hip; C91.10 Chronic lymphocytic leukemia of B-cell type not having achieved remission; E11.9 Type 2 diabetes mellitus without complications; I50.9 Heart failure, unspecified; I48.91 Unspecified atrial fibrillation; K21.9 Gastro-esophageal reflux disease without esophagitis; Z79.82 Long term (current) use of aspirin; Z79.84 Long term (current) use of oral hypoglycemic drugs

== ENCOUNTER 2017-11-06 10:15 | Emergency (ER) | payer MEDICARE, OTHER ==
[2006-06-12 18:14] VITALS: BP 112/58
[~2017-11-06] VITALS: Ht 172.7 cm; Wt 58.6 kg
[~2017-11-06 10:15] MED LIST changes: +RISPERDAL 0.20.25 MG PO; +RISPERDAL 0.5M0.5 MG PO
[2017-11-06 10:19] VITALS: TEMP 97.6
[2017-11-06 10:53] LABS: MEAN CELL VOLUME 95 fl (80.0-100.0); MEAN CORPUSCULAR HGB CONC 30 g/dl (33.0-37.0); MEAN PLATELET VOLUME 11.5 fl (7.4-10.4); PLATELET COUNT 232 K/mm3 (130-400); RED BLOOD COUNT 3.64 M/mm3 (4.20-5.60); REDCELL DISTRIBUTION WIDTH-CV 15.6 % (11.5-14.5)
[2017-11-06 10:59] LABS: CALCIUM 9.3 mg/dL (8.4-10.2); CREATININE, serum 1.4 mg/dL (0.66-1.25); POTASSIUM 4.7 mmol/L (3.4-5.0)
[2017-11-06 11:03] LABS: HEMATOCRIT 34.5 % (42.0-52.0); HEMOGLOBIN 10.4 g/dl (13.5-18.0); MEAN CORPUSCULAR HEMOGLOBIN 29 pg (27.0-31.0)
[2017-11-06 11:08] LABS: COLLECTION METHOD CATHETER
[2017-11-06 11:22] LABS: PH 7 (5-8); SQUAMOUS EPITHELIAL None Seen /hpf; URINE APPEARANCE Clear; URINE BACTERIA None Seen /hpf; URINE BILIRUBIN Negative (NEGATIVE); URINE BLOOD Negative (NEGATIVE); URINE COLOR Straw; URINE GLUCOSE Negative (NEGATIVE); URINE KETONE Negative (NEGATIVE); URINE LEUKOCYTE ESTERASE Negative (NEGATIVE); URINE NITRATE Negative (NEGATIVE); URINE PROTEIN(semi-quant) Negative (NEGATIVE); URINE RBC 0-2 /hpf; URINE UROBILINOGEN Negative (NEGATIVE)
[2017-11-06 11:41] LABS: BAND 2 % (0-10); LYMPHOCYTE 95 % (20.0-51.0); NEUTROPHILS 3 % (42.0-75.2)
[2017-11-06 11:42] LABS: ANISOCYTOSIS 1+; PLATELET ESTIMATE NORMAL (NORMAL)
[2017-11-06] MEDS ORDERED: OMNICEF 300MG300 MG PO (13:55)
[2017-11-06 14:16] VITALS: BP 148/90; PULSE 67
== END 2017-11-06 14:59 | disposition home or self-care (01) ==
LOC: COL.ER 10:15
PROVIDERS: Emergency Medicine
DX: I48.91 Unspecified atrial fibrillation (principal); D72.829 Elevated white blood cell count, unspecified; R33.9 Retention of urine, unspecified; E11.9 Type 2 diabetes mellitus without complications; I11.0 Hypertensive heart disease with heart failure; I50.9 Heart failure, unspecified; I25.10 Atherosclerotic heart disease of native coronary artery without angina pectoris; K21.9 Gastro-esophageal reflux disease without esophagitis; N40.0 Benign prostatic hyperplasia without lower urinary tract symptoms; Z85.6 Personal history of leukemia; Z87.01 Personal history of pneumonia (recurrent); Z86.2 Personal history of diseases of the blood and blood-forming organs and certain disorders involving the immune mechanism; Z79.82 Long term (current) use of aspirin; Z79.84 Long term (current) use of oral hypoglycemic drugs; Z79.51 Long term (current) use of inhaled steroids
CPT/HCPCS: J7030

== ENCOUNTER 2017-11-12 20:08 | Emergency (ER) | payer MEDICARE, OTHER ==
[2006-06-12 18:14] VITALS: BP 112/58
[~2017-11-12] VITALS: Ht 172.7 cm; Wt 58.6 kg
[~2017-11-12 20:08] MED LIST changes: +OMNICEF 300MG300 MG PO
[2017-11-12 20:32] VITALS: BP 149/83; TEMP 97.4
[2017-11-12 21:34] VITALS: PULSE 74
== END 2017-11-12 21:41 | disposition home or self-care (01) ==
LOC: COL.ER 20:08
DX: R33.9 Retention of urine, unspecified (principal); I48.91 Unspecified atrial fibrillation; Z85.6 Personal history of leukemia; Z90.89 Acquired absence of other organs; Z98.890 Other specified postprocedural states; Z79.82 Long term (current) use of aspirin; Z79.51 Long term (current) use of inhaled steroids
CPT/HCPCS: 31860; A4314